=== PATIENT | female | born 1990 | race Caucasian/White ===

== ENCOUNTER 2020-09-19 07:29 | Emergency (ER) | payer SELFPAY ==
[~2020-09-19] VITALS: Ht 170.2 cm; Wt 136.5 kg
[2020-09-19 07:32] VITALS: BP 156/81
--- NOTE | 2020-09-19 07:43 | NUR ---
Pt ambulated to ER bed 7 with a steady gait.
--- NOTE | 2020-09-19 07:48 | NUR ---
Dr. Thompson at pt bedside for further evaluation.
--- NOTE | 2020-09-19 07:51 | NUR ---
30 Y/O FEMALE C/O LOWER ABDOMINAL PAIN 01/02 DESCRIBES CRAMPING/BLOATING RADIATES TO L FLANK PAIN X 3 DAYS. PT STATES WHEN SHE LAYS ON RIGHT SIDE THE PAIN IS WORST, TOOK LAXATIVES AND GAS RELIEF WITH NO RELIEF OF SYMPTOMS. LAST BM X3DAYS. PT ABS IS SOFT, LARGE, NON-TENDER BOWEL SOUNDS PRESENT X4. DENIES N/V/D. DENIES PMH NKA
[2020-09-19] MEDS ORDERED: DOCU-299 PO (08:21)
[2020-09-19] MEDS ORDERED: MAGN1.7529 PO (08:22)
[2020-09-19 08:41] VITALS: BP 156/81
--- NOTE | 2020-09-19 08:41 | NUR ---
Patient discharged with v/s stable. Written and verbal after care instructions given and explained. Patient alert, oriented and verbalized understanding of instructions. Carried with steady gait. All questions addressed prior to discharge. ID band removed. Patient advised to follow up with PMD. Rx of Magnesium Citrate 300cc PO PRN given. Patient educated on indication of medication including possible reaction and side effects. Opportunity to ask questions provided and answered.
== END 2020-09-19 08:41 | disposition home or self-care (01) ==
LOC: MED 07:29
DX: R10.84 Generalized abdominal pain (principal); K59.00 Constipation, unspecified; R63.0 Anorexia
CPT/HCPCS: 81002; 81025; 99282